=== PATIENT | female | born 1935 | race Caucasian/White ===

== ENCOUNTER 2018-12-24 12:04 | Outpatient (CLI) | payer OTHER ==
[~2018-12-24 12:04] MED LIST: ASA; LISINOPRIL; SYNTHROID75 MCG PO; VITAMINAS
== END 2018-12-24 12:41 | disposition home or self-care (01) ==
LOC: LAB 12:04
DX: N18.3 Chronic kidney disease, stage 3 (moderate) (principal); E03.8 Other specified hypothyroidism; D51.0 Vitamin B12 deficiency anemia due to intrinsic factor deficiency; D51.3 Other dietary vitamin B12 deficiency anemia; D63.1 Anemia in chronic kidney disease; R97.0 Elevated carcinoembryonic antigen [CEA]; D89.0 Polyclonal hypergammaglobulinemia; R63.4 Abnormal weight loss; M81.0 Age-related osteoporosis without current pathological fracture; I12.9 Hypertensive chronic kidney disease with stage 1 through stage 4 chronic kidney disease, or unspecified chronic kidney disease; K31.83 Achlorhydria; I10 Essential (primary) hypertension; C90.00 Multiple myeloma not having achieved remission; D47.2 Monoclonal gammopathy; E78.49 Other hyperlipidemia; I73.89 Other specified peripheral vascular diseases

== ENCOUNTER 2019-07-20 14:09 | Outpatient (CLI) | payer OTHER | END 2019-07-20 14:18 | disposition home or self-care (01) | LOC: TOM 14:09 | DX: G30.8 Other Alzheimer's disease (principal) ==

== ENCOUNTER 2019-10-04 21:15 | Emergency (ER) | payer OTHER ==
[~2019-10-04] VITALS: Ht 152.4 cm; Wt 45.8 kg
== END 2019-10-05 00:11 | disposition home or self-care (01) ==
LOC: ER 21:15
DX: S01.121A Laceration with foreign body of right eyelid and periocular area, initial encounter (principal); S70.01XA Contusion of right hip, initial encounter; W18.09XA Striking against other object with subsequent fall, initial encounter; Y93.89 Activity, other specified; Y92.018 Other place in single-family (private) house as the place of occurrence of the external cause; Y99.8 Other external cause status

== ENCOUNTER 2019-10-13 10:20 | Emergency (ER) | payer OTHER ==
[~2019-10-13] VITALS: Ht 160 cm; Wt 47.6 kg
[2019-10-13] MEDS ORDERED: RAZADYNE12 MG (10:44)
[2019-10-13] MEDS ORDERED: KEFLEX500 MG (10:44)
== END 2019-10-13 14:33 | disposition home or self-care (01) ==
LOC: ER 10:20
DX: Z48.02 Encounter for removal of sutures (principal)

== ENCOUNTER 2019-11-26 09:13 | Emergency (ER) | payer OTHER ==
[~2019-11-26] VITALS: Ht 162.6 cm; Wt 44.9 kg
[~2019-11-26 09:13] MED LIST changes: +KEFLEX500 MG; +RAZADYNE12 MG
[2019-11-26] MEDS ORDERED: SYNTHROID75 MCG PO (09:19)
[2019-11-26] MEDS ORDERED: B-12500 MC1 SL (09:20)
== END 2019-11-26 18:35 | disposition designated cancer center or children's hospital (05) ==
LOC: ER 09:13
DX: S06.5X0A Traumatic subdural hemorrhage without loss of consciousness, initial encounter (principal); S01.122A Laceration with foreign body of left eyelid and periocular area, initial encounter; W18.39XA Other fall on same level, initial encounter; Y93.89 Activity, other specified; Y92.098 Other place in other non-institutional residence as the place of occurrence of the external cause; Y99.8 Other external cause status

== ENCOUNTER 2019-12-29 14:21 | Outpatient (CLI) | payer OTHER ==
[~2019-12-29 14:21] MED LIST changes: +B-12500 MC1 SL
== END 2019-12-29 14:24 | disposition home or self-care (01) ==
LOC: TOM 14:21
DX: G30.1 Alzheimer's disease with late onset (principal)

== ENCOUNTER 2020-03-06 13:32 | Emergency (ER) | payer OTHER ==
[~2020-03-06] VITALS: Ht 165.1 cm; Wt 40.8 kg
[2020-03-06] MEDS ORDERED: LOSARTAN POTASS25 MG PO (13:48)
[2020-03-06] MEDS ORDERED: FERROUS SU15 MG/1 ML PO (13:49)
[2020-03-06] MEDS ORDERED: INTEGRA F CAPS1 EACH PO (13:49)
[2020-03-06] MEDS ORDERED: LYSIPLEX PLUS178 ML PO (13:50)
[2020-03-06] MEDS ORDERED: PEPCID20 MG PO (13:50)
== END 2020-03-06 14:28 | disposition home or self-care (01) ==
LOC: ER 13:32
DX: S70.11XA Contusion of right thigh, initial encounter (principal); W01.198A Fall on same level from slipping, tripping and stumbling with subsequent striking against other object, initial encounter; Y93.01 Activity, walking, marching and hiking; Y92.018 Other place in single-family (private) house as the place of occurrence of the external cause; Y99.8 Other external cause status

== ENCOUNTER 2020-03-22 16:05 | Outpatient (CLI) | payer OTHER ==
[~2020-03-22 16:05] MED LIST changes: +FERROUS SU15 MG/1 ML PO; +INTEGRA F CAPS1 EACH PO; +LOSARTAN POTASS25 MG PO; +LYSIPLEX PLUS178 ML PO; +PEPCID20 MG PO
== END 2020-03-22 16:12 | disposition home or self-care (01) ==
LOC: RAD 16:05
DX: S70.01XA Contusion of right hip, initial encounter (principal); S70.02XA Contusion of left hip, initial encounter; M54.5 Low back pain

== ENCOUNTER → 2020-03-30 13:12 | Outpatient (CLI) | payer OTHER | END | disposition home or self-care (01) | LOC: LAB 13:12 | DX: R60.0 Localized edema (principal); B96.29 Other Escherichia coli [E. coli] as the cause of diseases classified elsewhere ==

== ENCOUNTER 2020-04-06 14:41 | Outpatient (CLI) | payer OTHER | END 2020-04-06 14:46 | disposition home or self-care (01) | LOC: LAB 14:41 | PROVIDERS: ATTEND General Practice | DX: I10 Essential (primary) hypertension (principal) ==

== ENCOUNTER 2020-04-10 14:56 | Outpatient (CLI) | payer OTHER | END 2020-04-10 15:00 | disposition home or self-care (01) | LOC: LAB 14:56 | PROVIDERS: ATTEND General Practice | DX: R22.41 Localized swelling, mass and lump, right lower limb (principal); R22.42 Localized swelling, mass and lump, left lower limb; R22.31 Localized swelling, mass and lump, right upper limb ==